=== PATIENT | male | born 2000 | race Caucasian/White ===

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

== ENCOUNTER 2023-07-03 12:49 | Emergency (ER) | payer OTHER ==
[~2023-07-03] VITALS: Ht 182.9 cm; Wt 81.7 kg
[2023-07-03 13:01] VITALS: BP 141/80
== END 2023-07-03 14:44 | disposition home or self-care (01) ==
LOC: ER 12:49
DX: M25.511 Pain in right shoulder (principal); M54.2 Cervicalgia; F17.290 Nicotine dependence, other tobacco product, uncomplicated; W14.XXXA Fall from tree, initial encounter
CPT/HCPCS: 70450; 72125; 73030; 99284-25; L0160